=== PATIENT | female | born 1975 | race Caucasian/White ===

== ENCOUNTER 2016-07-17 16:57 | Emergency (ER) | payer OTHER ==
[2016-07-17] MEDS ORDERED: ACETAMINOPHEN 325 MG TAB ONE (17:52)
== END 2016-07-17 18:46 | disposition home or self-care (01) ==
LOC: FASTR 16:57
DX: J20.8 Acute bronchitis due to other specified organisms (principal)
CPT/HCPCS: 71020; 81025; 87804